=== PATIENT | male | born 2000 | race Two or more races ===

== ENCOUNTER 2023-11-27 00:19 | Emergency (ER) | payer OTHER, SELFPAY ==
[2023-11-27 00:31] VITALS: BP 135/80; PULSE 71; RESP 16; TEMP 36.7; O2SAT 99; BMI 18.2
--- NOTE | 2023-11-27 00:40 | ED_ITS ---
HPI - Wound/Laceration General Chief Complaint: Wound/Laceration Stated Complaint: BWC LACERATION L HAND Time Seen by Provider: 11/27/23 00:37 Source: patient Mode of arrival: walk-in Limitations: no limitations History of Present Illness HPI narrative: using a hammer at work and struck and lacerated his left thumb. No numbness or weakness but has pain and lac of the thumb Related Data Home Medications Medication Instructions Recorded Confirmed No Known Home Medications 11/27/23 11/27/23 Allergies Allergy/AdvReac Type Severity Reaction Status Date / Time No Known Drug Allergies Allergy Verified 11/27/23 00:34 Review of Systems ROS Status of ROS 10 or more systems reviewed and unremark able except as noted in history and below PFS PFS Social History Smoking status: Current every day smoker Exam Constitutional Vital Signs, click to edit/add: Last Vital Signs Temp 98.1 F 11/27/23 00:31 Pulse 71 11/27/23 00:31 Resp 16 11/27/23 00:31 BP 135/80 11/27/23 00:31 Pulse Ox 99 11/27/23 00:31 O2 Del Method Room Air 11/27/23 00:59 Common normals: no apparent distress, average body habitus, oriented x3, no limitations, healthy appearing, alert and well nourished Eye Common normals: EOMs intact bilaterally Respiratory Common normals: no retractions and no use of accessory muscles Extremity Other: laceration volar aspect left thumb. no deformity of the thumb Neuro Common normals: oriented x3, CN's II-XII intact bilaterally, moves all extremities, no focal motor deficits and no sensory deficits noted Psych Appearance: grossly normal Course Vital Signs Vital signs: Vital Signs Temperature 98.1 F 11/27/23 00:31 Pulse Rate 71 11/27/23 00:31 Respiratory Rate 16 11/27/23 00:31 Blood Pressure 135/80 11/27/23 00:31 Pulse Oximetry 99 11/27/23 00:31 Temperature 98.1 F 11/27/23 00:31 Pulse Rate 71 11/27/23 00:31 Respiratory Rate 16 11/27/23 00:31 Blood Pressure 135/80 11/27/23 00:31 Pulse Oximetry 99 11/27/23 00:31 Oxygen Delivery Method Room Air 11/27/23 00:59 MDM - Wound/Laceration MDM Narrative Medical decision making narrative: patient presents from work after striking his thumb with a hammer and cutting his thumb. xray neg. lac repaired and patient discharged home Imaging Data Chest x-ray: Radiologist's impression: ITS Impressions Hand X-Ray 11/27/23 00:40 IMPRESSION: No acute osseous abnormality of the left hand. Electronically authenticated by: RAAD GIL Date: 11/27/2023 01:27 Discharge Plan Discharge Chief Complaint: Wound/Laceration Clinical Impression: Laceration, Contusion of left thumb Patient Disposition: Home, Self-Care Prescriptions / Home Meds: No Action No Known Home Medications Instructions: Finger Laceration (ED) Additional Instructions: have wound rechecked in 2-3 days and stitches removed in 10 days Stand Alone Forms: Portal Instructions Referrals: Physician,Non-Staff, MD [Primary Care Provider] - 1 week Procedures ED Procedure Instructions Procedures Procedures: 2.5cm superficial lac left volar thumb. 1% lido as a local. Site cleaned with betadine and rinsed with saline. closed with # 4 4.0 nylon stitches
--- NOTE | 2023-11-27 00:40 | XR_ITS ---
[facility] [place] [id number] Patient Name: SAUMYA HOLDER MRN: [id number] date: 2000 Sex: M Assigned Patient Location: ER Current Patient Location: ER Accession/Order Number: [id number] Exam Date: 11/27/2023 00:00 Report Date: 11/27/2023 01:27 At the request of: JOSÉ LUIS PENA Procedure: XR hand LT 2V XR hand LT 2V 11/27/2023 12:00 AM EST CLINICAL INDICATION: Thumb injury COMPARISON: None. TECHNIQUE: 2 views of the left hand. FINDINGS: The bones are intact. The alignment is anatomic. The joints are maintained. The soft tissues are grossly unremarkable. XR/XR hand LT 2V IMPRESSION: No acute osseous abnormality of the left hand. Electronically authenticated by: RAAD GIL Date: 11/27/2023 01:27
[2023-11-27] MEDS: LIDOCAINE HCL 1% 100 MG/10 ML MDV INJ (01:13)
== END 2023-11-27 02:10 | disposition home or self-care (01) ==
PROVIDERS: Emergency Provider Internal Medicine
DX: S61.012A Laceration without foreign body of left thumb without damage to nail, initial encounter (principal); S60.012A Contusion of left thumb without damage to nail, initial encounter; W22.8XXA Striking against or struck by other objects, initial encounter
CPT/HCPCS: 12001; 73120; 99283